=== PATIENT | male | born 1980 | race Caucasian/White ===

== ENCOUNTER 2016-08-20 07:24 | Emergency (ER) | payer OTHER ==
[2016-08-20 07:57] VITALS: BMI 25.7
[2016-08-20] MEDS ORDERED: SODIUM CHLORIDE 1,000 ML IV STA (07:57)
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
[2016-08-20 08:35] LABS: BASOPHIL 0.4 % (0-2.0); EOSINOPHIL 0.3 % (0-4.5); MCH 29.4 pg (25.7-33.7); MCHC 33.8 g/dl (32.0-35.9); MEAN CELL VOLUME 87.2 fl (80-96); MEAN PLT VOLUME 8.9 fl (7.5-11.1); NEUTROPHILS 72.1 % (42.8-82.8); PLATELET COUNT 195 K/MM3 (134-434); RDW 13.8 % (11.9-15.9); WHITE BLOOD COUNT 11.1 K/mm3 (4.0-10.0)
[2016-08-20 08:50] LABS: ALBUMIN 4.2 g/dl (3.4-5.0); ANION GAP 9 (8-16); BILIRUBIN,TOTAL 0.5 mg/dL (0.2-1.0); CALCIUM 10.5 mg/dL (8.5-10.1); CO2 28 mmol/L (21-32); COCKROFT - GAULT 134.67; CREATININE 0.9 mg/dL (0.7-1.3); GLUCOSE,RANDOM 87 mg/dL (74-106); SGOT/AST 40 U/L (15-37); SGPT/ALT 42 U/L (12-78); TOT PROT 7.8 g/dl (6.4-8.2)
[2016-08-20 08:51] LABS: ALK PHOS 74 U/L (45-117)
[2016-08-20] MEDS ORDERED: AMOX TR/POT CLAV 875MG/125MG TABLETS (FP) PO ONE (10:17)
[2016-08-20] MEDS ORDERED: AMOX TR/POT CLAV 875MG/125MG TABLETS (FP) ONE (10:21)
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
[2016-08-20 10:39] VITALS: BP 114/74; PULSE 80; TEMP 98.1
== END 2016-08-20 10:35 | disposition home or self-care (01) ==
LOC: JER 07:24
DX: S02.40CA Maxillary fracture, right side, initial encounter for closed fracture (principal); Y04.2XXA Assault by strike against or bumped into by another person, initial encounter; Y93.89 Activity, other specified; Y92.89 Other specified places as the place of occurrence of the external cause; F10.10 Alcohol abuse, uncomplicated
CPT/HCPCS: 36415; 70450-TC; 70486-TC; 71250-TC; 72125-TC; 74176-TC; 80053; 80307; 85025; 99282-25

== ENCOUNTER 2016-09-12 08:31 | Emergency (ER) | payer OTHER ==
[2016-09-12 08:38] VITALS: BP 142/91; PULSE 73; TEMP 98; BMI 28.8
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
[2016-09-12] MEDS ORDERED: IBUPROFEN 600 MG TABLET (FP) PO ONE ×2 (09:48→10:09)
== END 2016-09-12 10:20 | disposition left against medical advice (07) ==
LOC: JERFT 08:31
DX: Z53.21 Procedure and treatment not carried out due to patient leaving prior to being seen by health care provider (principal); V03.10XA Pedestrian on foot injured in collision with car, pick-up truck or van in traffic accident, initial encounter; Y93.89 Activity, other specified; Y92.410 Unspecified street and highway as the place of occurrence of the external cause; F20.9 Schizophrenia, unspecified; I10 Essential (primary) hypertension
CPT/HCPCS: 73590-TC-LT; 99281-25

== ENCOUNTER 2017-05-02 12:39 | Emergency (ER) | payer OTHER ==
[2017-05-02 12:59] VITALS: BP 147/89; PULSE 114; BMI 31.4
[2017-05-02] MEDS ORDERED: ACETAMINOPHEN 500 MG TABLET (FP) PO ONE (14:41)
--- NOTE | 2017-05-02 14:45 | PDOC ---
History of Present Illness - General Chief Complaint: Cold Symptoms Stated Complaint: FEVER, BODYACHES Time Seen by Provider: 05/02/17 14:29 History Source: Patient Exam Limitations: No Limitations - History of Present Illness Initial Comments: 05/02/17 14:41 36-year-old male with past medical history of hypertension and depression presents to emergency department with 2 days of bitemporal headache, body aches , fatigue, fevers, chills, anorexia, nonproductive cough. Patient states she went to another emergency department to have medication refill when somebody coughed in his face. 2 days later he began to experience symptoms. He denies chest pain, shortness of breath, abdominal pain, nausea, vomiting, diarrhea. Past History - Past Medical History Allergies/Adverse Reactions: Allergies Allergy/AdvReac Type Severity Reaction Status Date / Time shellfish derived Allergy Verified 05/02/17 12:54 Home Medications: Ambulatory Orders Atenolol [Tenormin -] 25 mg PO DAILY 04/27/15 Paroxetine HCl [Paxil] 20 mg PO DAILY 04/27/15 Quetiapine Fumarate "Xr" [Seroquel XR] 50 mg PO DAILY 04/27/15 Risperidone [Risperdal] 3 mg PO HS 04/27/15 Oseltamivir Phosphate [Tamiflu -] 75 mg PO BID #10 capsule 05/02/17 CVA: No COPD: No DVT: No HTN: Yes Psychiatric Problems: Yes (Schizophrenia) - Immunization History Immunization Up to Date: Yes - Suicide/Smoking/Psychosocial Hx Smoking History: Current every day smoker Have you smoked in the past 12 months: Yes Number of Cigarettes Smoked Daily: 2 Information on smoking cessation initiated: No Hx Alcohol Use: No Drug/Substance Use Hx: No Substance Use Type: Alcohol, Prescribed Review of Systems - Review of Systems Able to Perform ROS?: Yes Is the patient limited Austrian proficient: No Constitutional: Yes: See HPI HEENTM: Yes: See HPI Respiratory: Yes: See HPI Cardiac (ROS): No: Symptoms Reported ABD/GI: No: Symptoms Reported : No: Symptoms Reported Musculoskeletal: Yes: See HPI Integumentary: No: Symptoms Reported Neurological: No: Symptoms reported *Physical Exam - Vital Signs Last Vital Signs Temp Pulse Resp BP Pulse Ox 102.8 F H 114 H 16 147/89 97 05/02/17 12:55 05/02/17 12:55 05/02/17 12:55 05/02/17 12:55 05/02/17 12:55 - Physical Exam HEENT: positive: TMs Normal, Pharyngeal Erythema, Nasal Congestion. negative: Tonsillar Exudate, Tonsillar Erythema, Rhinorrhea Neck: positive: Trachea midline, Supple Respiratory/Chest: positive: Lungs Clear, Normal Breath Sounds. negative: Respiratory Distress, Accessory Muscle Use Cardiovascular: positive: Regular Rhythm, S1, S2, Tachycardia. negative: Edema , Murmur Gastrointestinal/Abdominal: positive: Normal Bowel Sounds, Soft. negative: Tender Musculoskeletal: positive: Normal Inspection Extremity: positive: Normal Inspection Integumentary: positive: Normal Color, Dry, Warm Neurologic: positive: core paster II-XII NML intact, Fully Oriented, Alert, Normal Mood/ Affect, Normal Response, Motor Strength 5/5, Finger to Nose Medical Decision Making - Medical Decision Making 05/02/17 14:44 A/P: This 36-year-old male with history of hypertension and depression presents with 2 days of flulike symptoms and also requesting medication refill. Differential erythema noted. No sinus tenderness. No cervical lymphadenopathy present Lungs clear to auscultation bilaterally Tachycardic with a regular rhythm. No murmurs. Normoactive bowel sounds. Abdomen soft nontender nondistended. Influenza testing Tylenol 1 g orally Reassess 05/02/17 15:39 Patient is positive for influenza A. tamiflu 75 mg day 5 days. Currently feels better. I will discharge the patient home. Patient has no primary care in this area or psychiatric care at this time. I will refer patient to [facility] for further management of his psychiatric disorders and medications. I discussed the physical exam findings, ancillary test results and final diagnoses with the patient. I answered all of the patient's questions. The patient was satisfied with the care received and felt comfortable with the discharge plan and treatment plan. The patient will call [facility] within 24 hours to arrange follow- up and will return to the Emergency Department with any new, persistent or worsening symptoms. *DC/Admit/Observation/Transfer Diagnosis at time of Disposition: Influenza A - Discharge Dispostion Disposition: HOME Condition at time of disposition: Stable Admit: No - Prescriptions Prescriptions: Oseltamivir Phosphate [Tamiflu -] 75 mg PO BID #10 capsule - Referrals Referrals: Hugo Mason MD [Staff Physician] - - Patient Instructions Additional Instructions: Rest, drink lots of fluids: Teas, water, soups, Pedialyte Saltwater gargles Steamy showers/seem to face break up mucus Avoid contact with others until fevers and cough resolved Lots of handwashing and good hygiene Continue [id number] medications for symptomatic relief Tylenol or Motrin for fever and pain Tamiflu 75mg twice a day for 5 days. Followup with [facility] in one to 2 days as needed Return to emergency department for worsened symptoms, fevers, dehydration - Post Discharge Activity Forms/Work/School Notes: Back to Work
[2017-05-02] MEDS ORDERED: ACETAMINOPHEN 500 MG TABLET (FP) ONE (15:07)
[2017-05-02 15:48] VITALS: TEMP 101.3
== END 2017-05-02 15:48 | disposition home or self-care (01) ==
LOC: JERFT 12:39
DX: J09.X2 Influenza due to identified novel influenza A virus with other respiratory manifestations (principal); I10 Essential (primary) hypertension; F32.9 Major depressive disorder, single episode, unspecified; F20.9 Schizophrenia, unspecified; F17.210 Nicotine dependence, cigarettes, uncomplicated
CPT/HCPCS: 87804; 99281-25

== ENCOUNTER 2018-01-06 02:41 | Emergency (ER) | payer OTHER ==
[2018-01-06 02:57] VITALS: BMI 31.0
--- NOTE | 2018-01-06 03:00 | PDOC ---
History of Present Illness - General Chief Complaint: Pain, Acute Stated Complaint: ABDOMINAL PAIN Time Seen by Provider: 01/06/18 02:59 Past History - Past Medical History Allergies/Adverse Reactions: Allergies Allergy/AdvReac Type Severity Reaction Status Date / Time shellfish derived Allergy Verified 01/06/18 02:50 Home Medications: Ambulatory Orders Atenolol [Tenormin -] 25 mg PO DAILY 04/27/15 Paroxetine HCl [Paxil] 20 mg PO DAILY 04/27/15 Quetiapine Fumarate "Xr" [Seroquel XR] 100 mg PO DAILY 04/27/15 Risperidone [Risperdal] 3 mg PO HS 04/27/15 Methocarbamol [Robaxin -] 500 mg PO TID #30 tablet 01/06/18 CVA: No COPD: No DVT: No HTN: Yes Psychiatric Problems: Yes (Schizophrenia) - Immunization History Immunization Up to Date: Yes - Suicide/Smoking/Psychosocial Hx Smoking History: Current every day smoker Have you smoked in the past 12 months: Yes Number of Cigarettes Smoked Daily: 10 Information on smoking cessation initiated: No Hx Alcohol Use: No Drug/Substance Use Hx: No Substance Use Type: Alcohol, Prescribed *Physical Exam - Vital Signs Last Vital Signs Temp Pulse Resp BP Pulse Ox 97.6 F 86 20 144/95 98 01/06/18 02:51 01/06/18 02:51 01/06/18 02:51 01/06/18 02:51 01/06/18 02:51 *DC/Admit/Observation/Transfer Diagnosis at time of Disposition: Muscle spasm - Discharge Dispostion Disposition: HOME Condition at time of disposition: Improved Decision to Admit order: No - Prescriptions Prescriptions: Methocarbamol [Robaxin -] 500 mg PO TID #30 tablet - Referrals - Patient Instructions Printed Discharge Instructions: Muscle Strain, Groin Strain - Post Discharge Activity
[2018-01-06] MEDS ORDERED: KETOROLAC TROMETHAMINE 60 MG/2 ML VIAL IM ONE (04:48)
[2018-01-06] MEDS ORDERED: METHOCARBAMOL 500 MG TABLET PO ONE (04:48)
[2018-01-06] MEDS ORDERED: KETOROLAC TROMETHAMINE 60 MG/2 ML VIAL ONE (04:57)
[2018-01-06] MEDS ORDERED: METHOCARBAMOL 500 MG TABLET ONE (04:57)
[2018-01-06 05:16] VITALS: BP 146/78; PULSE 88; TEMP 98.5
[2018-01-06 05:37] LABS: URINE APPEARANCE CLEAR; URINE BILIRUBIN NEGATIVE (<2.0 mg/dL); URINE COLOR LTYELLOW; URINE GLUCOSE (UA) NEGATIVE (NEGATIVE); URINE KETONE NEGATIVE (NEGATIVE); URINE LEUK ESTERASE TRACE (NEGATIVE); URINE NITRITE NEGATIVE (NEGATIVE); URINE PROTEIN NEGATIVE (NEGATIVE); URINE UROBILINOGEN NEGATIVE mg/dL (0.2-1.0)
[2018-01-06 05:40] LABS: EPI CELLS RARE /HPF (FEW); URINE MUCUS RARE
== END 2018-01-06 05:17 | disposition home or self-care (01) ==
LOC: JER 02:41
PROC: 3E0233Z Introduction of Anti-inflammatory into Muscle, Percutaneous Approach (ICD-10-PCS; principal; 2018-01-06)
DX: M62.838 Other muscle spasm (principal); I10 Essential (primary) hypertension; F20.9 Schizophrenia, unspecified; F17.210 Nicotine dependence, cigarettes, uncomplicated
CPT/HCPCS: 81003; 81015; 96372; 99283-25

== ENCOUNTER 2019-01-17 00:48 | Emergency (ER) | payer OTHER ==
[2019-01-17 01:00] VITALS: BMI 31.9
[2019-01-17] MEDS ORDERED: IBUPROFEN 600 MG TABLET (FP) PO ONE ×3 (02:26→02:28)
[2019-01-17] MEDS ORDERED: METHOCARBAMOL 500 MG TABLET ONE ×2 (02:26→02:28)
[2019-01-17] MEDS ORDERED: METHOCARBAMOL 500 MG TABLET PO ONE (02:26)
[2019-01-17 03:04] VITALS: BP 122/71; PULSE 85; TEMP 99.1
[2019-01-17 03:12] LABS: URINE APPEARANCE CLEAR; URINE BILIRUBIN NEGATIVE (NEGATIVE); URINE COLOR YELLOW; URINE GLUCOSE (UA) NEGATIVE (NEGATIVE); URINE KETONE NEGATIVE (NEGATIVE); URINE LEUK ESTERASE NEGATIVE (NEGATIVE); URINE NITRITE NEGATIVE (NEGATIVE); URINE PROTEIN NEGATIVE (NEGATIVE); URINE UROBILINOGEN 0.2 mg/dL (0.2-1.0)
--- NOTE | 2019-01-17 03:32 | PDOC ---
History of Present Illness - General Chief Complaint: Injury Stated Complaint: FALL Time Seen by Provider: 01/17/19 02:17 History Source: Patient Exam Limitations: No Limitations - History of Present Illness Initial Comments: Keith Healy is a 38 yo m w a hx of HTN, depression, and schizophrenia who presents to the [facility] er after he fell down and landed on his lower back. He states that he now has lower back pain. The pain is rated 6/10 and does not radiate to the groin. He reports that he has not taken any medications for the pain he would just like the pain to go away. He denies any fevers or chills, and denies loss of bowel or bladder. PCP: Marlon Arias PSH: None reported Social Hx: Uses marijuana daily. Denies smoking cigarettes, alcohol use or other illicit drug usage Allergies: Shellfish. Past History - Past Medical History Allergies/Adverse Reactions: Allergies Allergy/AdvReac Type Severity Reaction Status Date / Time shellfish derived Allergy Verified 01/17/19 00:59 Home Medications: Ambulatory Orders Atenolol [Tenormin -] 25 mg PO DAILY 04/27/15 Paroxetine HCl [Paxil] 20 mg PO DAILY 04/27/15 Quetiapine Fumarate "Xr" [Seroquel XR] 100 mg PO DAILY 04/27/15 Risperidone [Risperdal] 3 mg PO HS 04/27/15 Methocarbamol [Robaxin -] 500 mg PO TID #30 tablet 01/06/18 CVA: No COPD: No DVT: No HTN: Yes Psychiatric Problems: Yes (Schizophrenia) - Immunization History Immunization Up to Date: Yes - Psycho Social/Smoking Cessation Hx Smoking History: Unknown if ever smoked Have you smoked in the past 12 months: No Number of Cigarettes Smoked Daily: 10 Information on smoking cessation initiated: No Hx Alcohol Use: Yes Drug/Substance Use Hx: No Substance Use Type: Alcohol, Prescribed Review of Systems - Review of Systems Able to Perform ROS?: Yes Comments:: CONSTITUTIONAL: Absent: fever, no chills, no fatigue EYES: Absent: visual changes ENT: Absent: ear pain, no sore throat CARDIOVASCULAR: Absent: chest pain, no palpitations RESPIRATORY: Absent: cough, no SOB GI: Absent: abdominal pain, no nausea, no vomiting, no constipation, no diarrhea GENITOURINARY: Absent: dysuria, no frequency, no hematuria MUSKULOSKELETAL: Present: back pain Absent: no arthralgia, no myalgia SKIN: Absent: rash NEURO: Absent: headache *Physical Exam - Vital Signs Last Vital Signs Temp Pulse Resp BP Pulse Ox 99.1 F 85 20 122/71 94 L 01/17/19 03:03 01/17/19 03:03 01/17/19 00:59 01/17/19 03:03 01/17/19 03:03 - Physical Exam Comments: GENERAL: Well-appearing, well-nourished. No apparent distress. HEENT: Normocephalic, atraumatic. PERRL, EOM intact. CARDIOVASCULAR: Normal S1, S2. Regular rate and rhythm. PULMONARY: No evidence of respiratory distress. Lungs clear to auscultation bilaterally. No wheezing, rales or rhonchi. ABDOMEN: Soft, non-distended, non-tender. BACK: There is mild lumbar TTP. EXTREMITIES: Normal ROM in all four extremities. No gross deformities. SKIN: Warm, dry. No rash NEUROLOGICAL: No focal neurological deficits. ED Treatment Course - ADDITIONAL ORDERS Additional order review: Laboratory Results 01/17/19 02:55 Urine Color Yellow Urine Appearance Clear Urine pH 5.0 Ur Specific [place] 1.014 Urine Protein Negative Urine Glucose (UA) Negative Urine Ketones Negative Urine Blood Negative Urine Nitrite Negative Urine Bilirubin Negative Urine Urobilinogen 0.2 Ur Leukocyte Esterase Negative - RADIOLOGY Radiology Studies Ordered: Category Date Time Status SPINE-LUMBAR ONLY [RAD] Stat Radiology 01/17/19 02:42 Taken - Medications Given in the ED: ED Medications Discontinued Medications Generic Name Dose Route Start Last Admin Trade Name Fercho PRN Reason Stop Dose Admin Ibuprofen 600 mg 01/17/19 02:26 01/17/19 02:39 Motrin - PO 01/17/19 02:27 600 mg ONCE ONE Administration Methocarbamol 500 mg 01/17/19 02:26 01/17/19 02:39 Robaxin - PO 01/17/19 02:27 500 mg ONCE ONE Administration Medical Decision Making - Medical Decision Making Keith Healy is a 38 yo m w a hx of HTN, depression, and schizophrenia who presents to the [facility] er after he fell down and landed on his lower back. He states that he now has lower back pain. The pain is rated 6/10 and does not radiate to the groin. He reports that he has not taken any medications for the pain he would just like the pain to go away. He denies any fevers or chills, and denies loss of bowel or bladder. Vital Signs Temp Pulse Resp BP Pulse Ox 99.1 F 85 20 122/71 94 L 01/17/19 03:03 01/17/19 03:03 01/17/19 00:59 01/17/19 03:03 01/17/19 03:03 DDx IBNLT: Musculoskeletal back pain vs vertebral fx Plan: Analgesia, urine, XR, re-assess. Urine: Positive for Marijuana and PCP - PCP is likely a false positive from his schizophrenic meds. XR: No acute pathology. Re-assessment: Patient feels better after analgesia Disposition: Home with PCP fu Discharge - Discharge Information Problems reviewed: Yes Clinical Impression/Diagnosis: Back pain Qualifiers: Back pain location: low back pain Chronicity: acute Back pain laterality: midline Sciatica presence: without sciatica Qualified Code(s): M54.5 - Low back pain Condition: Improved Disposition: HOME - Admission No - Follow up/Referral Referrals: [facility] [Provider Group] - Patient Discharge Instructions Patient Printed Discharge Instructions: Low Back Pain Additional Instructions: You came into the ER with lower back pain. We did an x-ray which showed no fracture. Take ibuprofen and tylenol as needed for pain control. Drink plenty of fluids. Please schedule a follow up with your primary care doctor in the next 3 to 5 days. Come back to the ER if your pain worsens or you have any other new or worsening concerns. Thank you for coming to the [facility] ER. We hope you feel better soon! Print Language: HONDURAN - Post Discharge Activity
[2019-01-17 03:33] LABS: COCAINE, UR NEGATIVE ng/ml (CUTOFF=300); METHADONE, UR NEGATIVE ng/ml (CUTOFF=300); OPIATES, URI NEGATIVE ng/ml (CUTOFF=300); URINE AMPHETAMINES NEGATIVE ng/ml (CUTOFF=500); URINE BARBITURATES NEGATIVE ng/ml (CUTOFF=200); URINE BENZODIAZEPINES NEGATIVE ng/ml (CUTOFF=200)
[2019-01-17 03:49] LABS: PHENCYCLIDINE,URINE POSITIVE ng/ml (CUTOFF=25)
--- NOTE | 2019-01-17 04:21 | PDOC ---
Attending Attestation - Resident Resident Name: Michael Saldana - ED Attending Attestation I have performed the following: I have examined & evaluated the patient, The case was reviewed & discussed with the resident, I agree w/resident's findings & plan, Exceptions are as noted - HPI HPI: 01/17/19 04:19 38M pmh HTN, schizophrenia, depression here with lower back pain after mechanical fall. Pain is 6/10, no radiation, no numbness, weakness, incontinence, anesthedia. - Physicial Exam PE: 01/17/19 04:20 Agree with exam documented by resident - Medical Decision Making 01/17/19 04:20 lbp s/p mechanical fall analgesia xr f/u imaging re-eval No signs of acute injury dc home
== END 2019-01-17 04:39 | disposition home or self-care (01) ==
LOC: JER 00:48
DX: M54.5 Low back pain (principal); W19.XXXA Unspecified fall, initial encounter; Y93.89 Activity, other specified; Y92.89 Other specified places as the place of occurrence of the external cause; Y99.8 Other external cause status; I10 Essential (primary) hypertension; F32.9 Major depressive disorder, single episode, unspecified; F20.9 Schizophrenia, unspecified
CPT/HCPCS: 72100-TC-FY; 80307; 81003; 87086; 99282-25

== ENCOUNTER 2021-02-26 08:19 | Emergency (ER) | payer OTHER ==
[2021-02-26 08:31] VITALS: BP 153/110; PULSE 80; TEMP 98; BMI 31.9
== END 2021-02-26 09:11 | disposition home or self-care (01) ==
LOC: JER 08:19
DX: Z76.0 Encounter for issue of repeat prescription (principal)
CPT/HCPCS: 99282-25

== ENCOUNTER 2021-04-04 13:23 | Emergency (ER) | payer OTHER ==
[2021-04-04 13:45] VITALS: BP 164/100; PULSE 89; TEMP 97.8; BMI 30.4
== END 2021-04-04 14:51 | disposition home or self-care (01) ==
LOC: JER 13:23
DX: M79.10 Myalgia, unspecified site (principal); R53.81 Other malaise
CPT/HCPCS: 99283-25

== ENCOUNTER 2021-04-23 17:39 | Observation (INO) | payer OTHER ==
[2021-04-23] MEDS ORDERED: ACETAMINOPHEN 1000 MG/100 ML BAG IVPB ONE (18:47)
[2021-04-23] MEDS ORDERED: SODIUM CHLORIDE 0.9% 500 ML INFUS.BAG IV ONE (18:47)
[2021-04-23] MEDS ORDERED: ACETAMINOPHEN INJECTION 100 ML IVPB ONE (19:43)
[2021-04-23 20:20] LABS: BASO % 0.3 % (0-2.0); EOS % 0.2 % (0-4.5); HEMATOCRIT 47.8 % (35.4-49); HEMOGLOBIN 15.4 GM/dL (11.7-16.9); LYMPH % 18.2 % (8-40); MCH 27.7 pg (25.7-33.7); MCHC 32.3 g/dl (32.0-35.9); MEAN CELL VOLUME 85.7 fl (80-96); MEAN PLT VOLUME 8.6 fl (7.5-11.1); MONO % 5.9 % (3.8-10.2); NEUT % 75.4 % (42.8-82.8); PLATELET COUNT 193 10^3/uL (134-434); RBC 5.57 M/mm3 (4.00-5.60); RDW 14.3 % (11.9-15.9); WHITE BLOOD COUNT 8.6 K/mm3 (4.0-10.0)
[2021-04-23] MEDS ORDERED: LABETALOL HCL 5 MG/1 ML (100MG/20 ML VIAL) IVPUSH ONE (20:23)
[2021-04-23] MEDS ORDERED: LABETALOL HCL 5 MG/1 ML (200MG/40ML VIAL) IVPB ONE (20:35)
[2021-04-23 20:44] LABS: CHLORIDE 104 mmol/L (98-107); SODIUM 139 mmol/L (136-145)
[2021-04-23 20:46] LABS: ALBUMIN 4.1 g/dl (3.4-5.0); CALCIUM 10.4 mg/dL (8.5-10.1); GLUCOSE,RANDOM 82 mg/dL (74-106)
[2021-04-23 20:47] LABS: ANION GAP 7 MMOL/L (8-16); BLOOD UREA NITROGEN 9.6 mg/dL (7-18); CO2 28 mmol/L (21-32); LIPASE 74 U/L (73-393)
[2021-04-23 20:49] LABS: SGOT/AST 62 U/L (15-37); SGPT/ALT 147 U/L (13-61)
[2021-04-23 20:50] LABS: CREATININE 0.9 mg/dL (0.55-1.3)
[2021-04-23 20:51] LABS: BILIRUBIN,TOTAL 0.7 mg/dL (0.2-1); TOT PROT 7.6 g/dl (6.4-8.2)
[2021-04-23 20:52] LABS: ALK PHOS 69 U/L (45-117)
[2021-04-23 22:18] LABS: URINE APPEARANCE CLEAR; URINE BILIRUBIN NEGATIVE (NEGATIVE); URINE COLOR YELLOW; URINE GLUCOSE (UA) NEGATIVE (NEGATIVE); URINE KETONE 1+ (NEGATIVE); URINE LEUK ESTERASE NEGATIVE (NEGATIVE); URINE NITRITE NEGATIVE (NEGATIVE); URINE PROTEIN NEGATIVE (NEGATIVE)
[2021-04-23 22:24] LABS: COCAINE, UR NEGATIVE (NEGATIVE); METHADONE, UR NEGATIVE (NEGATIVE); OPIATES, URI NEGATIVE (NEGATIVE); PHENCYCLIDINE,URINE NEGATIVE (NEGATIVE); URINE AMPHETAMINES NEGATIVE (NEGATIVE); URINE BARBITURATES NEGATIVE (NEGATIVE); URINE BENZODIAZEPINES NEGATIVE (NEGATIVE)
[2021-04-24] MEDS ORDERED: LISINOPRIL 10 MG TABLET PO ONE (01:04)
[2021-04-24] MEDS ORDERED: LACTATED RINGERS SOLUTION 1000 ML INFUS.BAG IV ONE (01:05)
[2021-04-24] MEDS ORDERED: LISINOPRIL 5 MG TABLET ONE (01:22)
[2021-04-24] MEDS ORDERED: POLYETHYLENE GLYCOL (HEALTHYLAX) 3350 17 GM PACKET PO PRN (03:11)
[2021-04-24] MEDS ORDERED: ACETAMINOPHEN 1000 MG/100 ML BAG IVPB PRN (03:25)
[2021-04-24] MEDS ORDERED: ONDANSETRON 4 MG/2 ML VIAL IVPUSH PRN (03:25)
[2021-04-24 05:07] VITALS: BMI 29.9
[2021-04-24] MEDS ORDERED: KETOROLAC TROMETHAMINE 30 MG/1 ML VIAL IVPUSH ONE (07:21)
[2021-04-24 07:35] LABS: BASO % 0.2 % (0-2.0); EOS % 0.5 % (0-4.5); HEMATOCRIT 43.4 % (35.4-49); HEMOGLOBIN 14.3 GM/dL (11.7-16.9); LYMPH % 28.5 % (8-40); MCH 28.3 pg (25.7-33.7); MEAN PLT VOLUME 8.6 fl (7.5-11.1); MONO % 6.4 % (3.8-10.2); NEUT % 64.4 % (42.8-82.8); PLATELET COUNT 169 10^3/uL (134-434); RBC 5.05 M/mm3 (4.00-5.60); WHITE BLOOD COUNT 6.8 K/mm3 (4.0-10.0)
[2021-04-24 07:41] LABS: INR 1.07 (0.83-1.09); PROTHROMBIN TIME (PATIENT) 12.3 SEC (9.7-13.0)
[2021-04-24 07:44] LABS: ACTIVATED PTT 31.3 SECONDS (25.2-36.5)
[2021-04-24] MEDS ORDERED: guaiFENesin/D-METHORPHAN HB 10 ML UNIT-DOSE CUPS PO PRN (07:52)
[2021-04-24 08:08] LABS: CHLORIDE 104 mmol/L (98-107); SODIUM 138 mmol/L (136-145)
[2021-04-24 08:10] LABS: ANION GAP 3 MMOL/L (8-16); CALCIUM 9.9 mg/dL (8.5-10.1); CO2 31 mmol/L (21-32)
[2021-04-24 08:11] LABS: BLOOD UREA NITROGEN 10.1 mg/dL (7-18); GLUCOSE,RANDOM 118 mg/dL (74-106); MAGNESIUM 2.4 mg/dL (1.8-2.4)
[2021-04-24 08:14] LABS: CREATININE 0.9 mg/dL (0.55-1.3)
[2021-04-24] MEDS ORDERED: PARoxetine HCL 10 MG TABLET ONE (08:37)
[2021-04-24] MEDS ORDERED: PARoxetine HCL 20 MG TABLET PO SCH (10:00)
[2021-04-24] MEDS ORDERED: ENOXAPARIN NA (PORCINE) 40 MG/0.4 ML DISP.SYRIN SQ SCH (10:00)
[2021-04-24] MEDS ORDERED: LISINOPRIL 10 MG TABLET PO SCH (10:00)
[2021-04-24] MEDS ORDERED: LISINOPRIL 20 MG TABLET PO SCH (10:00)
[2021-04-24] MEDS ORDERED: NAPROXEN 500 MG TABLET PO SCH (11:15)
[2021-04-24 17:38] VITALS: BP 135/98; PULSE 87; TEMP 98.9
[2021-04-24] MEDS ORDERED: risperiDONE 1 MG TABLET PO SCH (22:00)
== END 2021-04-24 18:23 | disposition home or self-care (01) ==
LOC: JER 17:39 → INTOOBSV 04-24 00:38 → OBSVTOIN 04-24 00:38 → JERBED 04-24 00:38 → UNDOADMOB 04-24 00:38 → JERBED 04-24 04:35 → J4S 04-24 04:35 → JERBED 04-24 14:18 → J4S 04-24 14:18
PROVIDERS: ADMIT Internal Medicine
PROC: 3E033NZ Introduction of Analgesics, Hypnotics, Sedatives into Peripheral Vein, Percutaneous Approach (ICD-10-PCS; principal; 2021-04-24)
PROC: 3E023GC Introduction of Other Therapeutic Substance into Muscle, Percutaneous Approach (ICD-10-PCS; 2021-04-24)
PROC: 3E0333Z Introduction of Anti-inflammatory into Peripheral Vein, Percutaneous Approach (ICD-10-PCS; 2021-04-24)
PROC: 3E033GC Introduction of Other Therapeutic Substance into Peripheral Vein, Percutaneous Approach (ICD-10-PCS; 2021-04-24)
PROC: 3E0337Z Introduction of Electrolytic and Water Balance Substance into Peripheral Vein, Percutaneous Approach (ICD-10-PCS; 2021-04-24)
DX: U07.1 COVID-19 (principal); Z87.891 Personal history of nicotine dependence; Z91.013 Allergy to seafood; I10 Essential (primary) hypertension; F20.9 Schizophrenia, unspecified; R10.84 Generalized abdominal pain; R07.9 Chest pain, unspecified; R94.31 Abnormal electrocardiogram [ECG] [EKG]; F19.10 Other psychoactive substance abuse, uncomplicated; M54.9 Dorsalgia, unspecified; M54.59 Other low back pain; Z86.59 Personal history of other mental and behavioral disorders
CPT/HCPCS: 36415; 71045-TC-FY; 71275-TC; 74174-TC; 80048; 80053; 80307; 81003; 82550; 83690; 83735; 84484; 85025; 85610; 85651; 85730; 86140; 87086; 93005; 93010; 96361; 96372; 96374; 96375; 99285-25; C9803; G0378; J0131; Q9967; U0003; U0005

== ENCOUNTER 2021-07-24 21:28 | Emergency (ER) | payer OTHER ==
[2021-07-24 21:42] VITALS: BP 166/100; PULSE 77; TEMP 98.8; BMI 32.5
[2021-07-25 00:08] LABS: BASO % 0.8 % (0-2.0); EOS % 0.4 % (0-4.5); HEMATOCRIT 45.3 % (35.4-49); HEMOGLOBIN 15.2 GM/dL (11.7-16.9); LYMPH % 33.3 % (8-40); MCH 28.7 pg (25.7-33.7); MCHC 33.5 g/dl (32.0-35.9); MEAN CELL VOLUME 85.7 fl (80-96); NEUT % 57.5 % (42.8-82.8); PLATELET COUNT 181 10^3/uL (134-434); RBC 5.29 M/mm3 (4.00-5.60); RDW 13.8 % (11.9-15.9); WHITE BLOOD COUNT 7.3 K/mm3 (4.0-10.0)
[2021-07-25] MEDS ORDERED: POLYETHYLENE GLYCOL 3350 119 GM BTL PO ONE (00:17)
[2021-07-25] MEDS ORDERED: LACTULOSE 20 GM/30 ML UDC (FOR ORAL USE ONLY) PO ONE (00:17)
[2021-07-25] MEDS ORDERED: LACTULOSE 20 GM/30 ML UDC (FOR ORAL USE ONLY) ONE (00:22)
[2021-07-25] MEDS ORDERED: POLYETHYLENE GLYCOL (HEALTHYLAX) 3350 17 GM PACKET ONE (00:22)
[2021-07-25 00:36] LABS: CALCIUM 9.9 mg/dL (8.5-10.1)
[2021-07-25 00:40] LABS: BILIRUBIN,TOTAL 0.3 mg/dL (0.2-1); TOT PROT 7.8 g/dl (6.4-8.2)
[2021-07-25 02:09] LABS: PH,URINE 6.5 (5.0-8.0); URINE APPEARANCE CLEAR; URINE BILIRUBIN NEGATIVE (NEGATIVE); URINE COLOR YELLOW; URINE GLUCOSE (UA) NEGATIVE (NEGATIVE); URINE KETONE NEGATIVE (NEGATIVE); URINE LEUK ESTERASE NEGATIVE (NEGATIVE); URINE NITRITE NEGATIVE (NEGATIVE); URINE PROTEIN NEGATIVE (NEGATIVE); URINE UROBILINOGEN 0.2 mg/dL (0.2-1.0)
== END 2021-07-25 02:43 | disposition home or self-care (01) ==
LOC: JER 21:28
DX: N48.89 Other specified disorders of penis (principal)
CPT/HCPCS: 36415; 76870-TC; 80053; 81003; 85025; 87086; 99284-25

== ENCOUNTER 2021-08-22 10:45 | Emergency (ER) | payer OTHER ==
[2021-08-22 11:01] VITALS: BP 144/99; PULSE 94; TEMP 97.7; BMI 32.5
== END 2021-08-22 12:28 | disposition home or self-care (01) ==
LOC: JER 10:45 → JERFT 10:45
DX: F20.9 Schizophrenia, unspecified (principal); Z76.0 Encounter for issue of repeat prescription
CPT/HCPCS: 99281-25

== ENCOUNTER 2021-09-24 17:09 | Emergency (ER) | payer OTHER ==
[2021-09-24 17:35] VITALS: TEMP 98.5; BMI 31.0
[2021-09-24] MEDS ORDERED: ACETAMINOPHEN 500 MG TABLET (FP) PO ONE (20:24)
[2021-09-24] MEDS ORDERED: LORATADINE 10 MG TABLET PO ONE (20:24)
[2021-09-24] MEDS ORDERED: LORATADINE 10 MG TABLET ONE (20:28)
[2021-09-24] MEDS ORDERED: ACETAMINOPHEN 325 MG TABLET (FP) ONE (20:28)
[2021-09-24 21:09] LABS: BASO % 1.3 % (0-2.0); EOS % 0.1 % (0-4.5); HEMATOCRIT 45.5 % (35.4-49); HEMOGLOBIN 15.1 GM/dL (11.7-16.9); LYMPH % 21.4 % (8-40); MCH 28.5 pg (25.7-33.7); MCHC 33.2 g/dl (32.0-35.9); MEAN PLT VOLUME 8.3 fl (7.5-11.1); MONO % 7.8 % (3.8-10.2); NEUT % 69.4 % (42.8-82.8); PLATELET COUNT 197 10^3/uL (134-434); RBC 5.29 M/mm3 (4.00-5.60); RDW 13.9 % (11.9-15.9); WHITE BLOOD COUNT 8.6 K/mm3 (4.0-10.0)
[2021-09-24 21:27] LABS: CHLORIDE 105 mmol/L (98-107); SODIUM 138 mmol/L (136-145)
[2021-09-24 21:29] LABS: ALBUMIN 4.1 g/dl (3.4-5.0); ANION GAP 8 MMOL/L (8-16); CALCIUM 9.9 mg/dL (8.5-10.1); CO2 25 mmol/L (21-32); GLUCOSE,RANDOM 94 mg/dL (74-106)
[2021-09-24 21:33] LABS: CREATININE 0.8 mg/dL (0.55-1.3); SGOT/AST 19 U/L (15-37); SGPT/ALT 30 U/L (13-61)
[2021-09-24 21:34] LABS: BILIRUBIN,TOTAL 0.4 mg/dL (0.2-1); TOT PROT 7.6 g/dl (6.4-8.2)
[2021-09-24 21:35] LABS: ALK PHOS 71 U/L (45-117)
[2021-09-25 05:23] VITALS: BP 162/98; PULSE 68
== END 2021-09-25 05:22 | disposition short-term general hospital (02) ==
LOC: JER 17:09 → UNDOADMOB 22:33 → JERBED 22:33 → JER 09-25 05:22
DX: R45.851 Suicidal ideations (principal)
CPT/HCPCS: 36415; 80053; 80307; 84443; 85025; 93005; 93010; 99284-25

== ENCOUNTER 2024-05-17 01:53 | Emergency (ER) | payer OTHER ==
[2024-05-17 02:01] VITALS: TEMP 98.4; BMI 35.0
[2024-05-17 04:48] LABS: PH,URINE 5.5 (5.0-8.0); URINE APPEARANCE CLEAR; URINE BILIRUBIN NEGATIVE (NEGATIVE); URINE COLOR YELLOW; URINE GLUCOSE (UA) NEGATIVE (NEGATIVE); URINE KETONE NEGATIVE (NEGATIVE); URINE LEUK ESTERASE NEGATIVE (NEGATIVE); URINE NITRITE NEGATIVE (NEGATIVE); URINE PROTEIN NEGATIVE (NEGATIVE); URINE UROBILINOGEN 0.2 mg/dL (0.2-1.0)
[2024-05-17 05:08] VITALS: BP 153/102; PULSE 79; RESP 17
== END 2024-05-17 05:47 | disposition home or self-care (01) ==
LOC: JER 01:53
DX: N43.3 Hydrocele, unspecified (principal); I86.1 Scrotal varices; R07.89 Other chest pain; N50.811 Right testicular pain
CPT/HCPCS: 81003; 87086; 93005; 93010; 99284-25

== ENCOUNTER 2024-06-22 12:42 | Emergency (ER) | payer OTHER ==
[2024-06-22 12:52] VITALS: BP 142/92; PULSE 86; RESP 18; TEMP 99.1; BMI 32.5
[2024-06-22] MEDS ORDERED: ONDANSETRON 4 MG/2 ML VIAL ONE (13:51)
[2024-06-22] MEDS ORDERED: ACETAMINOPHEN INJECTION 100 ML ONE (13:51)
[2024-06-22] MEDS: ACETAMINOPHEN 1000 MG/100 ML BAG IVPB ONE (14:19)
[2024-06-22] MEDS: SODIUM CHLORIDE 0.9% 500 ML INFUS.BAG IV ONE (14:19)
[2024-06-22] MEDS: ONDANSETRON 4 MG/2 ML VIAL IVPB ONE (14:19)
[2024-06-22 14:30] LABS: ABSOLUTE IMMATURE GRANULOCYTES 0.03 x10^3/uL (0.0-0.031); BASOPHILS # 0.04 x10^3/uL (0.01-0.08); EOSINOPHIL % 0.3 % (0.8-7.0); EOSINOPHILS # 0.03 x10^3/uL (0.04-0.54); HEMATOCRIT 45.8 % (40.1-51.0); HEMOGLOBIN 14.9 g/dL (13.7-17.5); MCHC 32.5 g/dl (32.3-36.5); MEAN CELL VOLUME 87.7 fl (79.0-92.2); MEAN PLT VOLUME 10.5 fl (9.4-12.4); MONOCYTE # 0.51 x10^3/uL (0.30-0.82); MONOCYTE % 5.9 % (5.3-12.2); PLATELET COUNT # 230 x10^3/uL (163-337); RDW 12.6 % (12.1-15.9)
[2024-06-22 15:06] LABS: POTASSIUM 4.3 mmol/L (3.5-5.1)
[2024-06-22 15:10] LABS: CREATININE 0.8 mg/dL (0.55-1.3)
[2024-06-22 15:13] LABS: BILIRUBIN,TOTAL 0.4 mg/dL (0.2-1); TOT PROT 7.5 g/dl (6.4-8.2)
[2024-06-22] MEDS ORDERED: KETOROLAC TROMETHAMINE 15 MG/ML VIAL ONE (16:10)
[2024-06-22] MEDS: KETOROLAC TROMETHAMINE 15 MG/ML VIAL IVPUSH ONE (16:20)
[2024-06-22 17:53] LABS: PH,URINE 5.5 (5.0-8.0); URINE APPEARANCE CLEAR; URINE BILIRUBIN NEGATIVE (NEGATIVE); URINE COLOR YELLOW; URINE GLUCOSE (UA) NEGATIVE (NEGATIVE); URINE KETONE NEGATIVE (NEGATIVE); URINE LEUK ESTERASE NEGATIVE (NEGATIVE); URINE NITRITE NEGATIVE (NEGATIVE); URINE PROTEIN NEGATIVE (NEGATIVE); URINE UROBILINOGEN 0.2 mg/dL (0.2-1.0)
[2024-06-22 20:00] LABS: HCV DIAGNOSTIC IN-HOUSE W/RFLX NON-REACTIVE (NONREACTIVE)
[2024-06-22 20:01] LABS: HIV INTERPRETATION NEGATIVE (NEGATIVE)
== END 2024-06-22 18:15 | disposition home or self-care (01) ==
LOC: JER 12:42
PROC: 3E033NZ Introduction of Analgesics, Hypnotics, Sedatives into Peripheral Vein, Percutaneous Approach (ICD-10-PCS; principal; 2024-06-22)
PROC: 3E0333Z Introduction of Anti-inflammatory into Peripheral Vein, Percutaneous Approach (ICD-10-PCS; 2024-06-22)
PROC: 3E033GC Introduction of Other Therapeutic Substance into Peripheral Vein, Percutaneous Approach (ICD-10-PCS; 2024-06-22)
DX: R53.1 Weakness (principal); M54.50 Low back pain, unspecified; G89.29 Other chronic pain; R11.2 Nausea with vomiting, unspecified; R19.7 Diarrhea, unspecified; R06.02 Shortness of breath; R10.84 Generalized abdominal pain
CPT/HCPCS: 0241U-QW; 36415; 76870-TC; 80053; 81003; 83690; 84484; 85025; 86803; 87086; 87389; 93005; 93010; 96374; 96375; 99285-25; J0131

== ENCOUNTER 2024-07-25 06:27 | Emergency (ER) | payer OTHER ==
[2024-07-25 07:00] VITALS: RESP 18; TEMP 98.6; BMI 31.1
[2024-07-25] MEDS ORDERED: ACETAMINOPHEN INJECTION 100 ML ONE (08:15)
[2024-07-25] MEDS: ACETAMINOPHEN 1000 MG/100 ML BAG IVPB ONE (08:36)
[2024-07-25 08:41] LABS: ABSOLUTE IMMATURE GRANULOCYTES 0.02 x10^3/uL (0.0-0.031); BASOPHILS # 0.04 x10^3/uL (0.01-0.08); EOSINOPHIL % 1.2 % (0.8-7.0); HEMATOCRIT 42.6 % (40.1-51.0); MCHC 32.9 g/dl (32.3-36.5); MEAN CELL VOLUME 87.7 fl (79.0-92.2); MEAN PLT VOLUME 10.1 fl (9.4-12.4); MONOCYTE # 0.72 x10^3/uL (0.30-0.82); MONOCYTE % 8.3 % (5.3-12.2); PLATELET COUNT 219 x10^3/uL (163-337)
[2024-07-25 08:57] VITALS: BP 162/87; PULSE 82
[2024-07-25 09:15] LABS: POTASSIUM 3.8 mmol/L (3.5-5.1)
[2024-07-25 09:17] LABS: ALBUMIN 4.1 g/dl (3.4-5.0); BLOOD UREA NITROGEN 12.9 mg/dL (7-18); CALCIUM 10.6 mg/dL (8.5-10.1)
[2024-07-25 09:20] LABS: CREATININE 0.9 mg/dL (0.55-1.3)
[2024-07-25 09:22] LABS: BILIRUBIN,TOTAL 0.6 mg/dL (0.2-1); TOT PROT 7.4 g/dl (6.4-8.2)
[2024-07-25 10:03] LABS: PH,URINE 7.5 (5.0-8.0); URINE APPEARANCE CLEAR; URINE BILIRUBIN NEGATIVE (NEGATIVE); URINE COLOR YELLOW; URINE GLUCOSE (UA) NEGATIVE (NEGATIVE); URINE KETONE TRACE (NEGATIVE); URINE LEUK ESTERASE NEGATIVE (NEGATIVE); URINE NITRITE NEGATIVE (NEGATIVE); URINE PROTEIN TRACE (NEGATIVE)
[2024-07-25] MEDS ORDERED: KETOROLAC TROMETHAMINE 15 MG/ML VIAL ONE (10:40)
[2024-07-25] MEDS: KETOROLAC TROMETHAMINE 15 MG/ML VIAL IVPUSH ONE (10:48)
== END 2024-07-25 12:51 | disposition home or self-care (01) ==
LOC: JER 06:27
PROC: 3E033NZ Introduction of Analgesics, Hypnotics, Sedatives into Peripheral Vein, Percutaneous Approach (ICD-10-PCS; principal; 2024-07-25)
PROC: 3E0333Z Introduction of Anti-inflammatory into Peripheral Vein, Percutaneous Approach (ICD-10-PCS; 2024-07-25)
DX: R10.31 Right lower quadrant pain (principal); R10.32 Left lower quadrant pain
CPT/HCPCS: 36415; 74176-TC; 80053; 81003; 83605; 83690; 85025; 87086; 93005; 93010; 96374; 96375; 99285-25; J0131